=== PATIENT | female | born 1960 | race American Indian/Alaskan Native ===

== ENCOUNTER 2020-02-08 09:41 | Outpatient (CLI) | payer MEDICARE ==
--- NOTE | 2020-02-08 13:46 | Fluoroscopy Report ---
Barium swallow Indication: [id number].. Technique: Single and double contrast barium technique utilized to evaluate the esophagus. Findings: To begin the exam, swallowing was evaluated in the lateral position under direct fluorosco py. Swallowing was normal. No mucosal irregularity, mass, mass effect, or critical stenosis. There were no abnormal tertiary c ontractions as seen with dysmotility. There was severe gastroesophageal reflux reaching the upper eso phagus. Impression: Severe gastroesophageal reflux. Fluoroscopic time: 0.9 minutes Number of fluoroscopic images: 9 Signer Name: Jb Molina MD Signed: 02/08/2020 1:45 PM Workstation Name: [id number]
== END 2020-02-08 09:42 | disposition home or self-care (01) ==
LOC: FLUORO 09:41
DX: K21.01 Gastro-esophageal reflux disease with esophagitis, with bleeding (principal)
CPT/HCPCS: 74220